=== PATIENT | female | born 1980 | race Caucasian/White ===

== ENCOUNTER 2017-06-14 14:21 | Outpatient (CLI) | payer OTHER | END 2017-06-14 14:22 | disposition home or self-care (01) | LOC: BICMAMMO 14:21 | PROVIDERS: ATTEND Obstetrics & Gynecology | DX: N63.20 Unspecified lump in the left breast, unspecified quadrant (principal); Z80.3 Family history of malignant neoplasm of breast | CPT/HCPCS: 77066; G0204; G0279 ==

== ENCOUNTER 2017-12-11 15:36 | Outpatient (CLI) | payer OTHER | END 2017-12-11 15:37 | disposition home or self-care (01) | LOC: BICULT 15:36 | PROVIDERS: ATTEND Surgery | DX: N63.20 Unspecified lump in the left breast, unspecified quadrant (principal); N63.22 Unspecified lump in the left breast, upper inner quadrant ==

== ENCOUNTER 2018-02-25 14:37 | Outpatient (CLI) | payer OTHER | END 2018-02-25 14:38 | disposition home or self-care (01) | LOC: ULT 14:37 | PROVIDERS: ATTEND Family Medicine | DX: R00.2 Palpitations (principal); I07.1 Rheumatic tricuspid insufficiency | CPT/HCPCS: 93306 ==